=== PATIENT | male | born 1995 | race Caucasian/White ===

== ENCOUNTER 2016-07-12 21:19 | Emergency (ER) | payer OTHER ==
[2016-07-12 21:28] VITALS: BP 130/90; PULSE 90; BMI 22.8
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
== END 2016-07-13 02:02 | disposition home or self-care (01) ==
LOC: JER 21:19 → JERFT 21:19 → JER 07-13 02:02
DX: S09.8XXA Other specified injuries of head, initial encounter (principal); S02.5XXA Fracture of tooth (traumatic), initial encounter for closed fracture; V47.6XXA Car passenger injured in collision with fixed or stationary object in traffic accident, initial encounter; Y92.414 Local residential or business street as the place of occurrence of the external cause; Y93.89 Activity, other specified; Y99.8 Other external cause status
CPT/HCPCS: 70450-TC; 70486-TC; 72125-TC; 99281-25

== ENCOUNTER 2016-11-06 00:05 | Emergency (ER) | payer OTHER ==
[2016-11-06 01:49] VITALS: BP 135/72; PULSE 75; TEMP 97.5; BMI 21.7
[2016-11-06] MEDS ORDERED: ALPRAZolam 0.25 MG TABLET PO ONE (01:51)
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
[2016-11-06] MEDS ORDERED: ALPRAZolam 0.25 MG TABLET ONE (02:01)
== END 2016-11-06 02:09 | disposition home or self-care (01) ==
LOC: JER 00:05
DX: F13.10 Sedative, hypnotic or anxiolytic abuse, uncomplicated (principal)
CPT/HCPCS: 99281-25